=== PATIENT | male | born 1950 | race African-American/Black ===

== ENCOUNTER 2019-09-23 17:47 | Emergency (ER) | payer OTHER, MEDICARE ==
[~2019-09-23] VITALS: Ht 175.3 cm; Wt 78.5 kg
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
[2019-09-23] MEDS ORDERED: CYCL5TAB PO (20:00)
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
== END 2019-09-23 20:20 | disposition home or self-care (01) ==
LOC: ER 17:47
DX: S46.812A Strain of other muscles, fascia and tendons at shoulder and upper arm level, left arm, initial encounter (principal); S46.811A Strain of other muscles, fascia and tendons at shoulder and upper arm level, right arm, initial encounter; R07.89 Other chest pain; E11.9 Type 2 diabetes mellitus without complications; E78.00 Pure hypercholesterolemia, unspecified; I10 Essential (primary) hypertension; F10.20 Alcohol dependence, uncomplicated; Y90.9 Presence of alcohol in blood, level not specified; Z90.89 Acquired absence of other organs; V43.52XA Car driver injured in collision with other type car in traffic accident, initial encounter; Y93.89 Activity, other specified; Y92.410 Unspecified street and highway as the place of occurrence of the external cause; Y99.8 Other external cause status
CPT/HCPCS: 71046; 73030; 99284

== ENCOUNTER → 2019-12-22 | Day surgery (SDC) | payer MEDICARE, OTHER ==
[~2019-12-22] MED LIST: ASPI-630 PO; ATOR80TA72 PO; CYCL5TAB PO; IV RINGERS,LACTATED 1000ML 1,000 ML IV SCH; LISI-338 PO; METF10007 PO; PROPOFOL 40 ML IV ONE
--- NOTE | 2019-12-22 14:08 | PDOC4 ---
PROCEDURE Procedure Colonoscopy with biopsy. Indication: h/o polyps/positive cologuard Meds: per anesthesia Findings: EMERSON: scarring from hemorrhoidectomy, tight --Scope advanced to cecum. Prep good. Mucosa normal. 3-4mm polyp in transverse, biopsied off. Some small residual hemorrhoids on retroflex. Jesus. well. IMP: Small polyp. Hemorrhoids REC: Await path. Resume home medications and diet. F/u with me in 2 weeks. Repeat exam in 5 years. BERTRAM RUSSO MD Dec 22, 2019 14:08
[2019-12-22 14:20] VITALS: BP 127/63
--- NOTE | 2019-12-23 15:07 | PATHOLOGY ---
[facility] Accession Number: [id number] . 01 Material submitted: . colon - TRANSVERSE COLON POLYP BX. Modifiers: transverse . 01 Clinical history: . Hx polyps . 02 Diagnosis: Colon biopsy, transverse colon polyp: - Tubular adenoma. . (JPM:mala; 12/23/2019) QMS 12/23/2019 0913 Local . 02 Comment: There is no high grade dysplasia or evidence of malignancy. . 02 Electronically signed: . To Tineo MD, Pathologist NPI- [id number] . 01 Gross description: . Received in formalin labeled "Wilmar Oneill, transverse colon polyp BX," is a single segment of baptiste soft tissue measuring 0.5 cm in maximum dimension. The specimen is entirely submitted in cassette A1. (TSD; 12/22/2019) TOB/TOB 12/23/2019 0912 Local . 02 Pathologist provided ICD-10: D12.3 . 02 CPT . 005269 Specimen Comment: A courtesy copy of this report has been sent to [phone], [phone] Specimen Comment: [id number] Specimen Comment: Report sent to / DR CHAMBERS Specimen Comment: A duplicate report has been generated due to demographic updates. Performed at: 01 [facility] [address], [place], [place] [id number] MD Riley Akbar MD Phone: [phone] Performed at: 02 [facility] [address] [place], [place] [id number] MD To Tineo MD Phone: [phone]
== END | disposition home or self-care (01) ==
LOC: ENDOS 13:00
PROVIDERS: ATTEND Internal Medicine Gastroenterology
DX: R19.5 Other fecal abnormalities (principal); D12.3 Benign neoplasm of transverse colon; K64.8 Other hemorrhoids; E78.5 Hyperlipidemia, unspecified; I10 Essential (primary) hypertension; I25.10 Atherosclerotic heart disease of native coronary artery without angina pectoris; E11.9 Type 2 diabetes mellitus without complications; M50.30 Other cervical disc degeneration, unspecified cervical region; Z86.010 Personal history of colon polyps; Z79.82 Long term (current) use of aspirin; Z79.84 Long term (current) use of oral hypoglycemic drugs; Z79.899 Other long term (current) drug therapy
CPT/HCPCS: 45380; 88305; J2704

== ENCOUNTER → 2020-08-30 | Outpatient (CLI) | payer MEDICARE ==
[2019-12-22 14:20] VITALS: BP 127/63
[~2020-08-30] MED LIST changes: +IOHEXOL 240 MG/ML 50ML VIAL. PO ONE; +IOHEXOL 300 MG/ML 100ML VIAL. IV ONE; -IV RINGERS,LACTATED 1000ML 1,000 ML IV SCH; -PROPOFOL 40 ML IV ONE
--- NOTE | 2020-08-30 15:00 | RAD ---
Exam: CT abdomen/pelvis with intravenous contrast Indication: Enlarged liver Comparison: None Technique: Helical CT imaging performed of the abdomen and pelvis after the intravenous administration of 75 mL Omnipaque 300 intravenous contrast. Sagittal and coronal reformats were obtained. One or more of the following individualized dose reduction techniques were utilized for this examination: 1. Automated exposure control 2. Adjustment of the mA and/or kV according to patient size 3. Use of iterative reconstruction technique. Findings: Lower chest: Lung bases are clear. The heart is normal in size. Liver: The liver is normal in size and morphology. The right hepatic lobe measures 15.2 cm in length. There is normal hepatic attenuation. No focal liver lesion. Gallbladder/Biliary Tree: Normal. Pancreas: Normal. Spleen: Normal. Adrenal Glands: Normal. Kidneys/Ureters/Bladder: Kidneys are normal in size. There is a tiny subcentimeters hypodensity in the right kidney, too small to characterize. No hydronephrosis. Ureters and bladder are normal. Reproductive Organs: Prostate gland is normal in size Stomach, small bowel, and colon: The stomach, small bowel, and colon are normal. The appendix is not definitively visualized. Vasculature: Abdominal aorta is normal in caliber. Mild calcified aortoiliac atherosclerosis. Lymph Nodes: No lymphadenopathy. Peritoneum and retroperitoneum: No free fluid or free air. Bones: No acute osseous abnormality. There is degenerative joint disease of the sacroiliac joints. Moderate osteoarthrosis of the hips. Impression: 1. Normal CT appearance of the liver. 2. No acute abnormality. Electronically signed by: Vinita Robles MD (08/30/2020 2:57 PM) [id number]
== END | disposition home or self-care (01) ==
LOC: CT 08:59
PROVIDERS: ATTEND Internal Medicine
DX: R16.0 Hepatomegaly, not elsewhere classified (principal); M16.0 Bilateral primary osteoarthritis of hip; M46.1 Sacroiliitis, not elsewhere classified; I70.8 Atherosclerosis of other arteries
CPT/HCPCS: 74177; Q9966; Q9967

== ENCOUNTER → 2020-10-29 | Outpatient (CLI) | payer MEDICARE ==
[2019-12-22 14:20] VITALS: BP 127/63
[~2020-10-29] MED LIST changes: -IOHEXOL 240 MG/ML 50ML VIAL. PO ONE; -IOHEXOL 300 MG/ML 100ML VIAL. IV ONE
--- NOTE | 2020-10-29 16:44 | CARD ---
MR#: [id number] Date of Study: 10/29/2020 Ordering Physician: VIANCA BANKS, Referring Physician: VIANCA BANKS, Tech: Kassie Juarez APPROVED REPORT EXAM: Two-dimensional and M-mode echocardiogram with Doppler and color Doppler. Other Information Quality : AverageHR: 66bpm INDICATION Aortic Valve Disease RISK FACTORS Hypertension Hyperlipidemia Diabetes 2D DIMENSIONS RVDd2.8 (2.9-3.5cm)Left Atrium(2D)3.3 (1.6-4.0cm) IVSd1.0 (0.7-1.1cm)Aortic Root(2D)2.8 (2.0-3.7cm) LVDd4.7 (3.9-5.9cm)LVOT Diameter2.1 (1.8-2.4cm) PWd0.9 (0.7-1.1cm)LVDs3.1 (2.5-4.0cm) FS (%) 34.3 %SV64.5 ml LVEF(%)63.4 (>50%) Aortic Valve AoV Peak Steven.207.8cm/sAoV VTI40.9cm AO Peak GR.17.3mmHgLVOT Peak Steven.111.6cm/s LVOT VTI 24.66cmAO Mean GR.8mmHg MORENO (VMAX)1.13qg8RXJ (VTI)2.01cm2 AI P 1/2 Lbgv050gv Mitral Valve MV E Dcefgfjl03.5cm/sMV DECEL XPCA725id MV A Odqylvns67.9cm/sMV ESN79wl E/A Ratio0.8MVA (PHT)2.92cm2 TDI E/Lateral E'7.6E/Medial E'8.9 Pulmonary Valve PV Peak Etqjoznc94.0cm/sPV Peak Grad.2mmHg Tricuspid Valve TR P. Mwmkemtg862ji/sRAP SZZSYCDM4vsCl TR Peak Gr.18arXsDUPA63afGe Pulmonary Vein S1 Lvqpszjp72.9cm/sD2 Ewmaqlwg52.5cm/s PVa durettnq430gjqb LEFT VENTRICLE The left ventricle is normal size. There is normal left ventricular wall thickness. The left ventricu lar systolic function is normal and the ejection fraction is within normal range. The Ejection Fracti on is 55-60%. There is normal LV segmental wall motion. Transmitral Doppler flow pattern is Grade I-a bnormal relaxation pattern. RIGHT VENTRICLE The right ventricle is normal size. There is normal right ventricular wall thickness. The right ventr icular systolic function is normal. ATRIA The left atrium size is normal. The right atrium size is normal. The interatrial septum is intact wit h no evidence for an atrial septal defect or patent foramen ovale as noted on 2-D or Doppler imaging. AORTIC VALVE The aortic valve is mildly thickened. Doppler and Color Flow revealed mild aortic regurgitation. Calc ulated aortic valve area is 1.62 cm2 with maximum pressure gradient of 19 mmHg and mean pressure grad ient of 9 mmHg. MITRAL VALVE The mitral valve is normal in structure and function. There is no evidence of mitral valve prolapse. There is no mitral valve stenosis. Doppler and Color-flow revealed trace mitral regurgitation. TRICUSPID VALVE The tricuspid valve is normal in structure and function. Doppler and Color Flow revealed trace tricus pid regurgitation with an estimated PAP of 24 mmHg. There is no tricuspid valve stenosis. PULMONIC VALVE The pulmonic valve is not well visualized. Doppler and Color Flow revealed trace pulmonic valvular re gurgitation. There is no pulmonic valvular stenosis. GREAT VESSELS The aortic root is normal in size. The IVC is normal in size and collapses >50% with inspiration. PERICARDIAL EFFUSION There is no evidence of significant pericardial effusion. Critical Notification Critical Value: No <Conclusion> The left ventricular systolic function is normal and the ejection fraction is within normal range. Th e Ejection Fraction is 55-60%. There is normal LV segmental wall motion. Doppler and Color Flow revealed mild aortic regurgitation. Signed by : Colt Narvaez, Electronically Approved : 10/29/2020 13:00:22
== END ==
LOC: ECHO 08:46
PROVIDERS: ATTEND Internal Medicine Cardiovascular Disease
DX: I35.1 Nonrheumatic aortic (valve) insufficiency (principal)
CPT/HCPCS: 93306

== ENCOUNTER 2021-04-07 08:17 | Emergency (ER) | payer OTHER, MEDICARE ==
[~2021-04-07] VITALS: Ht 175.3 cm; Wt 78.6 kg
[~2021-04-07 08:17] MED LIST changes: -LISI-338 PO; +LISI-517 PO
[2021-04-07] MEDS ORDERED: CYCL5TAB PO (08:47)
[2021-04-07] MEDS ORDERED: TRAM-48 PO (08:47)
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
[2021-04-07 08:55] VITALS: BP 146/70
== END 2021-04-07 09:03 | disposition home or self-care (01) ==
LOC: ER 08:17
DX: S39.012A Strain of muscle, fascia and tendon of lower back, initial encounter (principal); S29.012A Strain of muscle and tendon of back wall of thorax, initial encounter; E11.9 Type 2 diabetes mellitus without complications; I10 Essential (primary) hypertension; E78.00 Pure hypercholesterolemia, unspecified; Z90.89 Acquired absence of other organs; V43.52XA Car driver injured in collision with other type car in traffic accident, initial encounter; Y93.89 Activity, other specified; Y92.89 Other specified places as the place of occurrence of the external cause; Y99.8 Other external cause status
CPT/HCPCS: 99283

== ENCOUNTER → 2021-12-05 | Outpatient (CLI) | payer MEDICARE, OTHER ==
[~2021-12-05] MED LIST changes: -LISI-517 PO; +LISI5TAB15 PO; +TRAM-48 PO
--- NOTE | 2021-12-05 10:40 | RAD ---
EXAM: Pelvis and right hip, 2 views. HISTORY: Pain. Arthritis. COMPARISON: None. FINDINGS: A frontal view the pelvis and frog-leg view the right hip are obtained. There is mild to mo derate marginal acetabular and femoral head spurring and degenerative subchondral sclerosis and subch ondral cyst formation. There is no fracture, dislocation or subluxation. 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 Electronically signed by: Ange Oneill MD (12/05/2021 10:37 AM) [id number]
== END ==
LOC: RAD 10:03
PROVIDERS: ATTEND Internal Medicine
DX: M16.0 Bilateral primary osteoarthritis of hip (principal); M76.9 Unspecified enthesopathy, lower limb, excluding foot
CPT/HCPCS: 73502

== ENCOUNTER → 2022-02-13 | Outpatient (CLI) | payer MEDICARE ==
--- NOTE | 2022-02-13 16:06 | RAD ---
XR RIBS 2 VIEWS RT History: Reason: RIGHT LOWER CHEST PAIN. MID BACK PAIN. / Spl. Instructions: / History: Technique: 2 views right RIBS Comparison: None. Findings: No displaced rib fracture. Imaged lungs are unremarkable. Right glenohumeral DJD. Impression: 1. No displaced rib fracture. Electronically signed by: Brady Oneill DO (02/13/2022 4:03 PM) [id number]
--- NOTE | 2022-02-13 16:07 | RAD ---
XR LUMBAR SPINE 2-3V History: Reason: RIGHT LOWER CHEST PAIN. MID BACK PAIN. / Spl. Instructions: / History: Technique: 3 views lumbar spine. Comparison: None. Findings: Grade 1 anterolisthesis L5 on S1. Normal vertebral body height. No acute fracture. Mild degenerative disc changes most prominent L5-S1. Impression: 1. Mild lumbar spondylosis. Electronically signed by: Brady Oneill DO (02/13/2022 4:04 PM) [id number]
== END ==
LOC: RAD 11:44
PROVIDERS: ATTEND Internal Medicine
DX: M47.817 Spondylosis without myelopathy or radiculopathy, lumbosacral region (principal); M43.17 Spondylolisthesis, lumbosacral region; M19.011 Primary osteoarthritis, right shoulder; R07.89 Other chest pain
CPT/HCPCS: 71100; 72100